=== PATIENT | female | born 1975 | race Caucasian/White ===

== ENCOUNTER 2016-07-02 17:31 | Emergency (ER) | payer OTHER ==
[2016-07-02] MEDS ORDERED: IOPAMIDOL 300 (61%) 150 ML VIAL IV ONE (17:32)
[2016-07-02 19:05] LABS: ABSOLUTE NEUTROPHIL COUNT 5.5 K/mm3 (1.8-7.7); BASO % 0.4 % (0.2-1.0); EOS # 0.2 (0.0-0.5); EOS % 1.8 % (0.9-2.9); HEMATOCRIT 38.3 % (37.0-47.0); HEMOGLOBIN 13.2 gm/l (12.0-16.0); IMM NEUT% 0.4 % (0-1); MEAN CELL VOLUME 91.8 fl (81.0-99.0); MEAN CORPUSCULAR HEMOGLOBIN 31.7 pg (27.0-31.0); MEAN CORPUSCULAR HGB CONC 34.5 g/dl (33.0-37.0); MEAN PLATELET VOLUME 11.4 fl (7.4-10.4); MONO # 0.7 (0.0-0.8); MONO % 8.3 % (4-12); NEUT % 65.1 % (43-75); PLATELET COUNT 138 K/mm3 (130-400); RED CELL DISTRIBUTION WIDTH 12.3 % (11.5-14.5)
[2016-07-02 19:51] LABS: CALCIUM 9.2 mg/dL (8.6-10.3)
[2016-07-02 19:53] LABS: INR 1.14; PROTHROMBIN TIME 12.1 SECONDS (9.3-11.4)
[2016-07-02] MEDS ORDERED: OXYCODONE HCL 5 MG TABLET ONE ×2 (20:06→22:00)
[2016-07-02] MEDS ORDERED: ONDANSETRON 4 MG/2ML 2 ML VIAL ONE ×2 (20:06→22:00)
[2016-07-02] MEDS ORDERED: LACTATED RINGERS 1,000 ML ONE (20:06)
[2016-07-02 20:18] LABS: SPECIFIC GRAVITY 1.015 (1.001-1.030); URINE BILIRUBIN NEGATIVE (NEGATIVE); URINE BLOOD NEGATIVE (NEGATIVE); URINE GLUCOSE (UA) NEGATIVE (NEGATIVE); URINE LEUKOCYTE ESTERASE NEGATIVE (NEGATIVE); URINE NITRITE NEGATIVE (NEGATIVE); URINE PROTEIN NEGATIVE (NEGATIVE); URINE UROBILINOGEN NORMAL (0-1 mg/dl)
[2016-07-02 20:22] LABS: HCG,QUALITATIVE URINE NEGATIVE
[2016-07-02 20:23] LABS: URINE APPEARANCE CLEAR; URINE COLOR YELLOW
--- NOTE | 2016-07-02 21:09 | CT ---
Exam Type: ABD/PELVIS W/ CON Date and Time: 07/02/2016 8:31 PM Clinical information: Severe left inguinal pain. Comparison: None Procedure: Imaging device: [employer] Aquilion [address] scanner 1 mm axial images were obtained through the abdomen and pelvis. Stacked reconstructed 3, 4 and 5 mm images were photographed in the axial coronal and sagittal planes. No oral contrast was utilized for this examination. 125 ml of Isovue-300 was injected intravenously. Exam: with intravenous contrast. FINDINGS: Lung bases:The visualized lung bases appear to be appropriate with no mass, effusion or consolidation visualized. Liver: the liver is homogeneous with no discrete abnormality visualized. No definite findings of biliary dilatation are observed. Spleen: The spleen is homogeneous and does not appear to be enlarged. Gallbladder: Normal without enlargement or evidence of adjacent inflammatory changes. Pancreas: Normal without enlargement or evidence of adjacent inflammatory changes. Adrenal glands: Normal without enlargement or evidence of adjacent inflammatory changes. Abdominal aorta: The aorta is of normal caliber and appears to be without significant atherosclerotic disease. Note is made of an inferior vena cava filter. Kidneys: The kidneys appear to be symmetric in size with no perinephric inflammatory changes are identified. No current findings of hydronephrosis are seen. Bowel structures: The visualized bowel is of normal caliber without evidence of dilatation or obstruction. No free fluid or mesenteric inflammatory changes are identified. Appendix: Not well visualized. Bladder: The bladder is of normal contour. No wall thickening or significant distention is observed. Hernia: No abdominal wall or inguinal hernia is visualized on this examination. Adenopathy: There is left inguinal adenopathy visualized with a lymph node measuring up to 1.4 cm in size as well as a 2.6 cm lymph node with adjacent inflammatory stranding suggested. Osseous structures: There is a deformity noted of the L3 vertebral body with prior vertebroplasty. Pelvic structures: 2 low-attenuation structures are suggested within the region of the left adnexa measuring 2.5 and 1.9 cm in size respectively. A small amount of pelvic free fluid is also observed. IMPRESSION: 1. Left inguinal adenopathy with a dominant 2.6 cm left inguinal lymph node with adjacent inflammatory stranding. 2. An indwelling inferior vena cava filter. 3. A deformity of the L3 vertebral body with subsequent vertebroplasty. 4. Two suggested left adnexal cysts measuring up to 2.5 cm in size with a small amount of pelvic free fluid. 5. Nonvisualization of the appendix.
== END 2016-07-02 22:16 | disposition home or self-care (01) ==
LOC: ED 17:31
DX: L04.1 Acute lymphadenitis of trunk (principal); R10.32 Left lower quadrant pain; F17.210 Nicotine dependence, cigarettes, uncomplicated; Z86.718 Personal history of other venous thrombosis and embolism; Z79.01 Long term (current) use of anticoagulants
CPT/HCPCS: 81025; 85025; 80048; 85610; 81003; 74177; 96376; 99284 ×2; 96374; 96361 ×2; A9270 ×2; J2405 ×2; J7120; Q9967